=== PATIENT | female | born 1945 | race Caucasian/White ===

== ENCOUNTER 2023-08-18 20:51 | Inpatient (IN) | payer MEDICARE, OTHER ==
[~2023-08-18] VITALS: Ht 167.6 cm; Wt 78.5 kg
[2023-08-18 21:41] LABS: BASOPHILS # (AUTO) 0.1 K/uL (0.0-0.2); BASOPHILS % (AUTO) 0.7 % (0.0-2.0); EOSINOPHILS # (AUTO) 0.2 K/uL (0.0-0.7); EOSINOPHILS % (AUTO) 2.2 % (0.0-6.0); HEMATOCRIT 41 % (33-45); HEMOGLOBIN 14.1 g/dL (11.5-14.8); LYMPHOCYTES # (AUTO) 1.4 K/uL (0.8-4.8); LYMPHOCYTES % (AUTO) 18.5 % (20.0-44.0); MEAN CORPUSCULAR HEMOGLOBIN 31 PG (26.0-33.0); MEAN CORPUSCULAR HGB CONC 34 g/dl (31.0-36.0); MEAN CORPUSCULAR VOLUME 91 fL (82-100); MONOCYTES # (AUTO) 0.7 K/uL (0.1-1.30); MONOCYTES % (AUTO) 8.5 % (2.0-12.0); NEUTROPHILS # (AUTO) 5.4 K/uL (1.8-8.9); NEUTROPHILS % (AUTO) 70.1 % (43.0-81.0); PLATELET COUNT (AUTO) 194 K/uL (150-450); RED BLOOD CELL COUNT(AUTO) 4.51 MIL/uL (4.0-5.2); RED CELL DISTRIBUTION WIDTH 14.7 % (11.5-15.0); WHITE BLOOD COUNT (AUTO) 7.7 K/uL (4.3-11.0)
[2023-08-18 21:51] LABS: CHLORIDE 102 mmol/L (98-107)
[2023-08-18 21:52] LABS: SERUM AMMONIA 32 umol/L (11-32)
[2023-08-18] MEDS ORDERED: MORPHINE SULFATE INJ 2 MG/ML DISP.SYRIN IV PRN (22:00)
[2023-08-18] MEDS ORDERED: ONDANSETRON HCL/PF 4 MG/2 ML VIAL IVP PRN (22:00)
[2023-08-18] MEDS: IV NS 0.9% 500 ML BAG IV ONE (22:00)
[2023-08-18 22:04] LABS: THYROID STIMULATING HORMONE 4.755 uIU/mL (0.358-3.74)
[2023-08-18 22:28] LABS: CALCIUM, SERUM 8.9 mg/dL (8.5-10.1); CARBON DIOXIDE 29 mmol/L (21-32); CHLORIDE 104 mmol/L (98-107); CREATININE 0.7 mg/dL (0.6-1.3); GLUCOSE 158 mg/dL (74-106); POTASSIUM 3.9 mmol/L (3.5-5.1); SODIUM SERUM 137 mmol/L (136-145); UREA NITROGEN, BLOOD 28 mg/dL (7-18)
[2023-08-18 22:32] LABS: BILIRUBIN,URINE NEGATIVE (NEGATIVE); BLOOD, URINE NEGATIVE Ery/uL (NEGATIVE); COLOR,URINE YELLOW (YELLOW); KETONES,URINE NEGATIVE (NEGATIVE); LEUKOCYTE ESTERASE ,URINE 2+ (NEGATIVE); NITRITE, URINE POSITIVE (NEGATIVE); PROTEIN,URINE NEGATIVE (NEGATIVE); UGLUCOSE NEGATIVE (NEGATIVE); UROBILINOGEN,URINE 0.2 EU/dL (0.2)
[2023-08-18 22:37] LABS: CALCIUM, SERUM 8.9 mg/dL (8.5-10.1); CARBON DIOXIDE 29 mmol/L (21-32); GLUCOSE 158 mg/dL (74-106); POTASSIUM 3.9 mmol/L (3.5-5.1); SODIUM SERUM 137 mmol/L (136-145); UREA NITROGEN, BLOOD 28 mg/dL (7-18)
[2023-08-18 22:38] LABS: APPEARANCE,URINE CLOUDY (CLEAR)
[2023-08-18 22:38] LABS: ALANINE AMINOTRANSFERASE 16 U/L (12-78); ALBUMIN 2.5 g/dL (3.4-5.0); ALKALINE PHOSPHATASE 115 U/L (46-116); ASPARTATE AMINOTRANSFERASE 13 U/L (15-37); BILIRUBIN,DIRECT 0.1 mg/dL (0.0-0.2); BILIRUBIN,TOTAL 0.3 mg/dL (0.2-1.0); CREATININE 0.7 mg/dL (0.6-1.3)
[2023-08-18 22:39] LABS: ALCOHOL, BLOOD 2 mg/dL (0-10); TOTAL PROTEIN, SERUM 5.8 g/dL (6.4-8.2)
[2023-08-18 22:45] LABS: ADD URINE CULTURE YES; AMPHETAMINE, URINE NEGATIVE (NEGATIVE); BACTERIA,URINE Many /HPF (None Seen); BARBITURATE, URINE NEGATIVE (NEGATIVE); BENZODIAZEPINE, URINE NEGATIVE (NEGATIVE); CANNABINOID, URINE NEGATIVE (NEGATIVE); COCCAINE, URINE NEGATIVE (NEGATIVE); OPIATE, URINE NEGATIVE (NEGATIVE); PHENCYCLIDINE SCREEN,URINE NEGATIVE (NEGATIVE); RBC,URINE 0-2 /HPF (0-2); SQUAMOUS EPITHELIAL CELL,UR Rare /HPF (None Seen); WBC,URINE 21-50 /HPF (0-3)
[2023-08-18] MEDS ORDERED: CEFTRIAXONE 1GM BAG (ER ONLY) 50 ML IV ONE (23:23)
[2023-08-18] MEDS: CEFTRIAXONE 1GM BAG (ER ONLY) 1 GM/50 ML PIGGYBACK IV ONE (23:25)
[2023-08-19] VITALS (9 sets, daily range): BP systolic 118–173; BP diastolic 63–97; TEMP 97.6–98.2; O2SAT 95–98
[2023-08-19] MEDS: hydrALAZINE HCL IV 20 MG VIAL IV PRN (01:23)
[2023-08-19 06:22] LABS: BASOPHILS % (AUTO) 0.4 % (0.0-2.0); EOSINOPHILS # (AUTO) 0.2 K/uL (0.0-0.7); EOSINOPHILS % (AUTO) 2.3 % (0.0-6.0); HEMATOCRIT 44 % (33-45); LYMPHOCYTES # (AUTO) 1.3 K/uL (0.8-4.8); LYMPHOCYTES % (AUTO) 17.3 % (20.0-44.0); MEAN CORPUSCULAR HEMOGLOBIN 31 PG (26.0-33.0); MEAN CORPUSCULAR HGB CONC 34 g/dl (31.0-36.0); MEAN CORPUSCULAR VOLUME 92 fL (82-100); MONOCYTES # (AUTO) 0.6 K/uL (0.1-1.30); MONOCYTES % (AUTO) 7.9 % (2.0-12.0); NEUTROPHILS # (AUTO) 5.3 K/uL (1.8-8.9); NEUTROPHILS % (AUTO) 72.1 % (43.0-81.0); PLATELET COUNT (AUTO) 184 K/uL (150-450); RED BLOOD CELL COUNT(AUTO) 4.86 MIL/uL (4.0-5.2); RED CELL DISTRIBUTION WIDTH 15.1 % (11.5-15.0); WHITE BLOOD COUNT (AUTO) 7.3 K/uL (4.3-11.0)
[2023-08-19 07:02] LABS: ALBUMIN 2.8 g/dL (3.4-5.0); BILIRUBIN,TOTAL 0.4 mg/dL (0.2-1.0); CALCIUM, SERUM 9.5 mg/dL (8.5-10.1); CREATININE 0.7 mg/dL (0.6-1.3); MAGNESIUM 1.9 mg/dL (1.8-2.4); PHOSPHORUS 3.4 mg/dL (2.5-4.9); POTASSIUM 3.8 mmol/L (3.5-5.1); TOTAL PROTEIN, SERUM 6.6 g/dL (6.4-8.2)
[2023-08-19] MEDS ORDERED: METH500T6 PO (09:18)
[2023-08-19] MEDS ORDERED: FERR324T PO (09:18)
[2023-08-19] MEDS ORDERED: VITA-354 PO (09:18)
[2023-08-19] MEDS ORDERED: ZIPR60CA2 PO (09:18)
[2023-08-19] MEDS ORDERED: MULT-213 PO (09:18)
[2023-08-19] MEDS ORDERED: ATOR10TA PO (09:18)
[2023-08-19] MEDS ORDERED: ASPI-1169 PO (09:18)
[2023-08-19] MEDS ORDERED: DILT-32 PO (09:18)
[2023-08-19] MEDS ORDERED: BUSP15TA3 PO (09:18)
[2023-08-19] MEDS: POLYETHYLENE GLYCOL 3350 17 GM POWD.PACK PO SCH (09:18)
[2023-08-19] MEDS: DOCUSATE SODIUM LIQ 100 MG/10 ML UDC PO SCH (09:18)
[2023-08-19] MEDS ORDERED: CLON0.1T PO (09:18)
[2023-08-19] MEDS: HEPARIN SODIUM, PORCINE 5000 UNITS/1 ML VIAL SQ SCH (09:19)
[2023-08-19] MEDS: DILTIAZEM HCL CD 120 MG PO SCH (16:12)
[2023-08-19] MEDS: busPIRone 5 MG TABLET PO SCH (16:13)
[2023-08-19] MEDS: ZIPRASIDONE 20 MG CAPSULE PO SCH (16:13)
[2023-08-19] MEDS: CLONIDINE HCL 0.1 MG TABLET PO SCH (16:14)
[2023-08-19] MEDS: METHOCARBAMOL (500MG) 500 MG TABLET PO SCH (16:14)
[2023-08-19] MEDS: ATORVASTATIN 10 MG TABLET PO SCH (22:11)
[2023-08-19] MEDS: CEFTRIAXONE 1 G in IV D5W 50 ML IV SCH (22:53)
[2023-08-20] VITALS: BP 158/67; TEMP 98.6; O2SAT 96
[2023-08-20 04:00] VITALS: BP 118/97; TEMP 97.7; O2SAT 97
[2023-08-20 06:47] LABS: BASOPHILS % (AUTO) 0.5 % (0.0-2.0); EOSINOPHILS # (AUTO) 0.2 K/uL (0.0-0.7); EOSINOPHILS % (AUTO) 1.9 % (0.0-6.0); HEMATOCRIT 45 % (33-45); HEMOGLOBIN 15.1 g/dL (11.5-14.8); LYMPHOCYTES # (AUTO) 1.5 K/uL (0.8-4.8); LYMPHOCYTES % (AUTO) 18.6 % (20.0-44.0); MEAN CORPUSCULAR HEMOGLOBIN 31 PG (26.0-33.0); MEAN CORPUSCULAR HGB CONC 34 g/dl (31.0-36.0); MEAN CORPUSCULAR VOLUME 90 fL (82-100); MONOCYTES # (AUTO) 0.6 K/uL (0.1-1.30); MONOCYTES % (AUTO) 7.4 % (2.0-12.0); NEUTROPHILS # (AUTO) 5.9 K/uL (1.8-8.9); NEUTROPHILS % (AUTO) 71.6 % (43.0-81.0); PLATELET COUNT (AUTO) 206 K/uL (150-450); RED BLOOD CELL COUNT(AUTO) 4.97 MIL/uL (4.0-5.2); WHITE BLOOD COUNT (AUTO) 8.2 K/uL (4.3-11.0)
[2023-08-20 07:00] VITALS: BP 188/78; TEMP 98.2; O2SAT 98
[2023-08-20 07:18] LABS: BILIRUBIN,TOTAL 0.6 mg/dL (0.2-1.0); CALCIUM, SERUM 9.7 mg/dL (8.5-10.1); CREATININE 0.7 mg/dL (0.6-1.3); MAGNESIUM 1.8 mg/dL (1.8-2.4); PHOSPHORUS 3.9 mg/dL (2.5-4.9); POTASSIUM 3.9 mmol/L (3.5-5.1); TOTAL PROTEIN, SERUM 6.9 g/dL (6.4-8.2)
[2023-08-20] MEDS: ASPIRIN 81 MG TAB.CHEW PO SCH (08:28)
[2023-08-20] MEDS: FERROUS SULFATE (325 MG) 325 MG/TAB TABLET PO SCH (08:28)
[2023-08-20] MEDS: MULTIVITAMINS,THERAGRAN 1 UDTAB TABLET PO SCH (08:29)
[2023-08-20 12:00] VITALS: BP 136/75; TEMP 98.4; O2SAT 100
[2023-08-20 16:00] VITALS: BP 101/79; TEMP 98.2; O2SAT 97
[2023-08-20] MEDS: ACETAMINOPHEN 325 MG TABLET PO PRN (16:31)
[2023-08-20 20:00] VITALS: BP 149/67; TEMP 97.9; TEMP 98.9; O2SAT 97
[2023-08-21] VITALS: BP 130/57; TEMP 98.2; O2SAT 98
[2023-08-21 04:00] VITALS: BP 160/78; TEMP 98.2; O2SAT 97
[2023-08-21 04:33] VITALS: BP 160/78; TEMP 98.2; O2SAT 97
[2023-08-21 07:00] VITALS: BP 172/78; TEMP 97.5; O2SAT 97
[2023-08-21 16:03] VITALS: BP 131/61
== END 2023-08-21 16:30 | DRG 689 ==
LOC: ER 20:55 → MED 22:49 → TELE 08-19 00:21 → MED 08-21 09:13
DX: N39.0 Urinary tract infection, site not specified (principal); G93.41 Metabolic encephalopathy; E44.0 Moderate protein-calorie malnutrition; I25.10 Atherosclerotic heart disease of native coronary artery without angina pectoris; E11.9 Type 2 diabetes mellitus without complications; F25.9 Schizoaffective disorder, unspecified; E78.5 Hyperlipidemia, unspecified; E88.09 Other disorders of plasma-protein metabolism, not elsewhere classified; F31.9 Bipolar disorder, unspecified; I10 Essential (primary) hypertension; Z79.84 Long term (current) use of oral hypoglycemic drugs; H91.90 Unspecified hearing loss, unspecified ear; Z68.27 Body mass index [BMI] 27.0-27.9, adult; B96.20 Unspecified Escherichia coli [E. coli] as the cause of diseases classified elsewhere
CPT/HCPCS: 36415; 70450-TC; 71045-TC; 80048-TC; 80053-TC; 80076-TC; 81001; 82140-TC; 83735-TC; 84100-TC; 84443-TC; 85025-TC; 87081-TC; 87086-TC; 97112-TC; 97530-TC; A4223; G0378; G0480; J0360; J0696; J1644; J7030; J7040; J7060